=== PATIENT | male | born 1945 | race Caucasian/White ===

== ENCOUNTER 2021-01-25 13:35 | Emergency (ER) | payer MEDICARE ==
[~2021-01-25] VITALS: Ht 170.2 cm; Wt 90.9 kg
[2021-01-25 14:24] VITALS: TEMP 98.6
[2021-01-25] MEDS ORDERED: NORCO 325 MG-51 TAB PO (16:03)
[2021-01-25 16:33] VITALS: BP 144/82; PULSE 67
== END 2021-01-25 16:34 | disposition home or self-care (01) ==
LOC: COL.ER 13:35
DX: S52.501A Unspecified fracture of the lower end of right radius, initial encounter for closed fracture (principal); S01.111A Laceration without foreign body of right eyelid and periocular area, initial encounter; W01.0XXA Fall on same level from slipping, tripping and stumbling without subsequent striking against object, initial encounter; Y93.01 Activity, walking, marching and hiking; Y92.480 Sidewalk as the place of occurrence of the external cause